=== PATIENT | female | born 1985 | race Caucasian/White ===

== ENCOUNTER → 2024-10-01 | Outpatient (CLI) | payer OTHER, SELFPAY ==
[2024-10-01 18:07] LABS: CPK Total, Creatine Kinase 117 U/L (24-195)
[2024-10-01 18:16] LABS: CRP < 3.00 mg/L (0.0-3.0); Uric Acid 3.9 mg/dL (2.6-6.0)
[2024-10-09 16:10] LABS: ACCA 13 units (0-90); ALCA 9 units (0-60); AMCA 13 units (0-100); Cytoplasmic Ab (C-ANCA) <1:20 titer (Neg:<1:20); Dopamine, Pl 10.1 pg/mL (0.0-36.7); Epinephrine, Pl 20.8 pg/mL (0.0-55.4); IgG, Quant 958 mg/dL (586-1602); Immunoglobulin A 237 mg/dL (87-352); Immunoglobulin G, Subclass 1 475 mg/dL (248-810); Immunoglobulin G, Subclass 2 375 mg/dL (130-555); Immunoglobulin G, Subclass 3 32 mg/dL (15-102); Immunoglobulin G, Subclass 4 30 mg/dL (2-96); Immunoglobulin M 88 mg/dL (26-217); Norepinephrine, Pl 546 pg/mL (115-524); Perinuclear Ab (P-ANCA) <1:20 titer (Neg:<1:20)
== END | disposition home or self-care (01) ==
LOC: LAB 16:57
PROVIDERS: PCP Obstetrics & Gynecology Gynecology; Referring Provider Internal Medicine Gastroenterology; Visit Provider Internal Medicine Gastroenterology
DX: K58.9 Irritable bowel syndrome, unspecified (principal); Z80.0 Family history of malignant neoplasm of digestive organs
CPT/HCPCS: 82085; 82384; 82550; 82784; 82785; 82787; 83516; 84550; 85652; 86036; 86037; 86140; 86671

== ENCOUNTER → 2024-10-04 | Outpatient (CLI) | payer OTHER, SELFPAY ==
[2024-10-09 15:08] LABS: Dopamine, 24Ur 636 ug/24 hr (0-510); Epinephrine, 24Ur < 13 ug/24 hr (0-20); Norepinephrine, 24Ur < 65 ug/24 hr (0-135); Norepinephrine, Ur < 15 ug/L (Undefined)
== END | disposition home or self-care (01) ==
LOC: LAB 09:33
PROVIDERS: PCP Obstetrics & Gynecology Gynecology; Referring Provider Internal Medicine Gastroenterology; Visit Provider Internal Medicine Gastroenterology
DX: K58.9 Irritable bowel syndrome, unspecified (principal); Z80.0 Family history of malignant neoplasm of digestive organs
CPT/HCPCS: 81050; 82384